=== PATIENT | male | born 1945 | race Caucasian/White ===

== ENCOUNTER 2016-09-15 13:00 | Outpatient (CLI) | payer OTHER ==
--- NOTE | 2016-09-16 09:15 | Mammography Report ---
DIGITAL BILATERAL MAMMOGRAM: 09/15/2016 CLINICAL HISTORY: A 70-year-old male who smokes occasionally marijuana and also takes steroids. Pat isamar has been feeling recently a right breast lump and tenderness. Patient has no family history of breast cancer. No past history of breast surgeries. COMPARISON: None. TECHNIQUE: Craniocaudad and oblique lateral views of each breast were obtained with Hologic Full Fie ld digital mammography. FINDINGS: Breasts are almost entirely composed of fat. Minimal glandular hyperplasia is noted in th e right subareolar region. This right is in the area or pit. This glandular hyperplasia in the male is typical for benign gynecomastia. No additional abnormalities are detected. Breasts otherwise ar e normal. No clusters of calcification are seen. No masses are noted. IMPRESSION: BENIGN RIGHT GYNECOMASTIA IS NOTED. BIRADS CATEGORY 2 - BENIGN FINDING. RECOMMENDATIONS: None. COMMENT: Dr. Hicks informed the patient of the benign findings. He told the patient that the sangita gn gynecomastia was most likely a response to either the marijuana or the steroids. STANDARD QUALIFYING STATEMENTS 1. This examination was reviewed with the aid of Computer-Aided Detection (CAD). 2. A negative or benign imaging report should not delay biopsy if clinically suspicious findings are present. Consider surgical consultation if warranted. More than 5% of cancers are not identified by i ing. 3. Dense breasts may obscure an underlying neoplasm. JOB #: [id number] EXT JOB #:
== END 2016-09-15 13:01 | disposition home or self-care (01) ==
LOC: DI 13:00
PROVIDERS: ATTEND Family Medicine
DX: N62 Hypertrophy of breast (principal)
CPT/HCPCS: 77066

== ENCOUNTER 2016-09-18 09:04 | Outpatient (CLI) | payer MEDICARE, OTHER ==
[2016-09-18 14:51] LABS: BASOPHILS # (AUTO) 0.1 10^3/uL (0.0-0.1); BASOPHILS % (AUTO) 0.9 %; EOSINOPHILS # (AUTO) 0.2 10^3/uL (0.0-0.7); EOSINOPHILS % (AUTO) 3.5 %; HCT - HEMATOCRIT 46.4 % (42.0-52.0); HGB - HEMOGLOBIN 15.2 g/dL (14.0-18.0); LYMPHOCYTES # (AUTO) 1.1 10^3/uL (1.5-3.5); LYMPHOCYTES % (AUTO) 17.5 %; MEAN CORPUSCULAR HEMOGLOBIN 31.8 pg (27.0-31.0); MEAN CORPUSCULAR HGB CONC 32.8 g/dL (32.0-36.0); MEAN CORPUSCULAR VOLUME 96.9 fL (80.0-94.0); MEAN PLATELET VOLUME 8.4 fL (7.4-11.4); MONOCYTES # (AUTO) 0.6 10^3/uL (0.0-1.0); MONOCYTES % (AUTO) 9.5 %; NEUTROPHILS # (AUTO) 4.3 10^3/uL (1.5-6.6); NEUTROPHILS % (AUTO) 68.6 %; RED BLOOD COUNT 4.79 10^6/uL (4.70-6.10); RED CELL DISTRIBUTION WIDTH 14.3 % (12.0-15.0); UNCORRECTED WHITE BLOOD COUNT 6.3 x10^3/uL; WHITE BLOOD COUNT 6.3 x10^3/uL (4.8-10.8)
[2016-09-18 15:12] LABS: ALBUMIN/GLOBULIN RATIO 1.3 (1.0-2.2); BILIRUBIN,TOTAL 1.4 mg/dL (0.2-1.0); BUN - BLOOD UREA NITROGEN 15 mg/dL (6-20); CALCIUM 9.5 mg/dL (8.5-10.3); CARBON DIOXIDE - CO2 26 mmol/L (21-32); CHLORIDE 101 mmol/L (101-111); CHOL/HDL RATIO 1.7 (<5.0); CHOLESTEROL 211 mg/dL; CREATININE 1.1 mg/dL (0.6-1.2); GFR - MDRD 66 (>89); GLUCOSE 127 mg/dL (70-100); HDL CHOLESTEROL 124 mg/dL; LDL/HDL RATIO 0.6 (<3.6); SODIUM 137 mmol/L (135-145); TOTAL PROTEIN 6.9 g/dL (6.7-8.2); TRIGLYCERIDES 58 mg/dL; VLDL CHOLESTEROL 12 mg/dL
[2016-09-18 15:24] LABS: FERRITIN 58.9 ng/mL (23.9-336.2)
[2016-09-18 15:37] LABS: THYROID STIMULATING HORMONE 1.92 uIU/mL (0.34-5.60)
[2016-09-21 10:28] LABS: HEMOGLOBIN A1C 0.54 g/dL
== END 2016-09-18 09:05 | disposition home or self-care (01) ==
LOC: LAB.WCP 09:04
PROVIDERS: ATTEND Physician Assistant Medical
DX: Z00.00 Encounter for general adult medical examination without abnormal findings (principal); D50.9 Iron deficiency anemia, unspecified; Z12.5 Encounter for screening for malignant neoplasm of prostate; E29.1 Testicular hypofunction; R73.9 Hyperglycemia, unspecified
CPT/HCPCS: 36415; 80053; 80061; 82728; 83036; 84403; 84443; 85025; G0103; 83690; 84153

== ENCOUNTER 2018-01-02 12:56 | Outpatient (CLI) | payer OTHER | END 2018-01-02 12:57 | disposition critical access hospital (66) | LOC: EMS 12:56 | PROVIDERS: ATTEND Surgery | DX: S89.92XA Unspecified injury of left lower leg, initial encounter (principal); W19.XXXA Unspecified fall, initial encounter | CPT/HCPCS: A0425; A0429 ==

== ENCOUNTER 2018-01-02 13:04 | Emergency (ER) | payer OTHER ==
[2018-01-02] MEDS ORDERED: oxyCODONE 5 MG TABLET PO STA ×2 (13:16→18:19)
--- NOTE | 2018-01-02 13:18 | ED Physician Documentation ---
PD HPI LOWER EXT INJURY - Stated complaint Stated Complaint: GLF - Chief complaint Chief Complaint: Ext Problem - History obtained from History obtained from: Patient, Family, EMS - History of Present Illness PD HPI LOW EXT INJURY LOCATION: Left, Knee Type of injury: Other (This is a 72-year-old gentleman who in 2002 or so had extensive surgeries on the left leg with what sounds like an external fixator for a tib-fib fracture and repair of his patella. Today he slipped and fell around 6 AM and thinks his knee bent too far and has moderate to severe left knee pain. No other injuries, no head injury.) Review of Systems Ten Systems: 10 systems reviewed and negative Constitutional: reports: Reviewed and negative Cardiac: reports: Reviewed and negative Respiratory: reports: Reviewed and negative Musculoskeletal: reports: Joint swelling Neurologic: denies: Headache, Head injury, LOC PD PAST MEDICAL HISTORY - Past Medical History Cardiovascular: None Respiratory: None Endocrine/Autoimmune: None GI: None : Other HEENT: None, Other Psych: None Musculoskeletal: Other Derm: None - Past Surgical History General: Cholecystectomy, Gastric surgery, Other Ortho: Other - Present Medications Home Medications: Ambulatory Orders Medication Instructions Recorded Confirmed Ascorbic Acid [Vitamin C] 1,000 mg PO DAILY 02/26/14 02/26/14 Calcium Carbonate/Vitamin D3 2 each PO BID 02/26/14 02/26/14 [Calcium + Vitamin D Tablet] Ferrous Sulfate [Iron Supplement] 325 mg PO DAILY 02/26/14 02/26/14 Glucosamine Sulfate Dipot Chlr 1,000 mg PO DAILY 02/26/14 02/26/14 [Glucosamine] Inulin [Fiber Choice] 1.5 gm PO DAILY 02/26/14 02/26/14 Mecobalamin [B-12] 1,000 mcg PO DAILY 02/26/14 02/26/14 RX: Magnesium 400 mg PO DAILY 02/26/14 02/26/14 RX: Multivitamin [Multivitamins] 1 ea PO DAILY 02/26/14 02/26/14 RX: Omeprazole 20 mg PO DAILY 02/26/14 02/26/14 RX: Larned's Wort 150 mg PO DAILY 02/26/14 02/26/14 RX: Testosterone Cypionate 100 mg IM ONCE 02/26/14 02/26/14 - Allergies Allergies/Adverse Reactions: Allergies Allergy/AdvReac Type Severity Reaction Status Date / Time No Known Drug Allergies Allergy Verified 01/02/18 13:13 - Family History Family history: reports: Non contributory PD ED PE NORMAL - Vitals Vital signs reviewed: Yes - General General: Alert and oriented X 3, No acute distress - HEENT HEENT: PERRL, EOMI - Neck Neck: Supple, no meningeal sign, No bony TTP - Cardiac Cardiac: RRR, No murmur - Respiratory Respiratory: No respiratory distress, Clear bilaterally - Abdomen Abdomen: Soft, Non tender - Derm Derm: Normal color, Warm and dry - Extremities Extremities: Other (There is a very large effusion of the left knee without focal tenderness but he is unable to range at all due to pain, the hip and lower leg are nontender. He has bounding pedal pulses.) - Neuro Neuro: Alert and oriented X 3, Normal speech - Psych Psych: Normal mood, Normal affect Results - Vitals Vitals: Vital Signs - 24 hr 01/02/18 01/02/18 01/02/18 13:07 15:23 18:19 Temperature 36.4 C L Heart Rate 65 64 63 Respiratory 16 15 15 Rate Blood Pressure 132/79 H 121/68 133/79 H O2 Saturation 98 98 98 Oxygen O2 Source Room air - Labs Labs: Laboratory Tests 01/02/18 01/02/18 14:35 14:35 WBC 15.3 H RBC 4.43 L Hgb 14.0 Hct 41.6 L MCV 93.7 MCH 31.6 H MCHC 33.7 RDW 13.7 Plt Count 271 MPV 7.5 Neut # (Auto) 13.1 H Lymph # (Auto) 1.1 L Ector # (Auto) 0.9 Eos # (Auto) 0.1 Baso # (Auto) 0.1 Absolute Nucleated RBC 0.00 Nucleated RBC % 0.0 Sodium 140 Potassium 4.5 Chloride 104 Carbon Dioxide 25 Anion Gap 11.0 BUN 13 Creatinine 1.0 Estimated GFR (MDRD) 73 L Glucose 105 H Calcium 9.1 Total Bilirubin 0.8 AST 28 ALT 24 Alkaline Phosphatase 62 Total Protein 6.8 Albumin 4.0 Globulin 2.8 Albumin/Globulin Ratio 1.4 Lipase 50 - Rads (name of study) L knee XR Radiology: EMP read contemporaneously (Comminuted distal femoral metaphyseal fracture with large butterfly fragments the medial aspect of the fracture plane and 2 cm of lateral displacement of the distal fracture fragment. Status post ORIF at the medial femoral condyle and tibia as well as old healed tibial and fibular fractures.) PD MEDICAL DECISION MAKING - ED course ED course: 72-year-old gentleman with extensive hardware in the left lower extremity presents after an isolated left lower extremity injury, x-ray shows comminuted and displaced angulated distal femur fracture. Case discussed by phone with Dr. Hill, the on-call orthopedic surgeon who recommended transfer to a tertiary facility for a staged repair. [facility] was called at 1:58 PM. We were notified by [facility] that he has Medicare primary and transfer does not need to go through them. We called [facility] but they were full. However they called us back and did accept the patient, I spoke with the orthopedist Dr. Lombardo who accepted him to his service and cobras were completed. Departure - Departure Disposition: 02 Transfer Acute Care Hosp Clinical Impression: Closed fracture of left distal femur Condition: Serious Discharge Date/Time: 01/02/18 18:35
--- NOTE | 2018-01-02 14:24 | XRAY Report ---
Reason: knee inj Procedure Date: 01/02/2018 Accession Number: [id number] / [id number] Procedure: XR - Knee 4 View LT CPT Code: FULL RESULT: EXAM: LEFT KNEE RADIOGRAPHY EXAM DATE: 01/02/2018 01:41 PM. CLINICAL HISTORY: Pain after knee injury. COMPARISON: Left knee 11/19/2011. TECHNIQUE: 4 views, 6 films. FINDINGS: Bones: There is diffuse osteopenia with prior screw fixation at the medial femoral condyle and lateral plate and screw fixation of the distal tibia. Intramedullary gala is also noted within the tibia with distal locking screws. There is a deformity of the distal tibia as well as the proximal fibula consistent with old fractures. However, there is a comminuted distal femoral metaphyseal fracture. There is 2 cm lateral displacement of the distal fracture fragment with a prominent butterfly fragment at the medial aspect of the fracture plane. Joints: Small knee effusion. Soft Tissues: Prominent soft tissue swelling. Heterotopic ossification adjacent to the medial femoral condyle. IMPRESSION: 1. Comminuted distal femoral metaphyseal fracture with large butterfly fragment at the medial aspect of the fracture plane and 2 cm lateral displacement of the distal fracture fragment. 2. Status post open reduction internal fixation at the medial femoral condyle as well as the tibia. 3. Old healed tibial and fibular fractures. RADIA
[2018-01-02 14:48] LABS: BASOPHILS # (AUTO) 0.1 10^3/uL (0.0-0.1); BASOPHILS % (AUTO) 0.4 %; EOSINOPHILS # (AUTO) 0.1 10^3/uL (0.0-0.7); EOSINOPHILS % (AUTO) 0.9 %; LYMPHOCYTES # (AUTO) 1.1 10^3/uL (1.5-3.5); LYMPHOCYTES % (AUTO) 7.3 %; MEAN CORPUSCULAR HEMOGLOBIN 31.6 pg (27.0-31.0); MEAN CORPUSCULAR HGB CONC 33.7 g/dL (32.0-36.0); MEAN CORPUSCULAR VOLUME 93.7 fL (80.0-94.0); MEAN PLATELET VOLUME 7.5 fL (7.4-11.4); MONOCYTES # (AUTO) 0.9 10^3/uL (0.0-1.0); MONOCYTES % (AUTO) 5.9 %; NEUTROPHILS # (AUTO) 13.1 10^3/uL (1.5-6.6); NEUTROPHILS % (AUTO) 85.5 %; PLT - PLATELET COUNT 271 10^3/uL (130-450); RED BLOOD COUNT 4.43 10^6/uL (4.70-6.10); RED CELL DISTRIBUTION WIDTH 13.7 % (12.0-15.0); WHITE BLOOD COUNT 15.3 x10^3/uL (4.8-10.8)
[2018-01-02 15:03] LABS: ALBUMIN/GLOBULIN RATIO 1.4 (1.0-2.2); BILIRUBIN,TOTAL 0.8 mg/dL (0.2-1.0); CALCIUM 9.1 mg/dL (8.5-10.3); TOTAL PROTEIN 6.8 g/dL (6.7-8.2)
[2018-01-02 18:19] VITALS: BP 133/79
== END 2018-01-02 18:35 | disposition short-term general hospital (02) ==
LOC: EDUNIT# → ED 13:04
DX: S72.492A Other fracture of lower end of left femur, initial encounter for closed fracture (principal); W01.0XXA Fall on same level from slipping, tripping and stumbling without subsequent striking against object, initial encounter; Y92.009 Unspecified place in unspecified non-institutional (private) residence as the place of occurrence of the external cause
CPT/HCPCS: 36415; 73564; 80053; 83690; 85025; 99284; 99285; A9270

== ENCOUNTER 2018-03-09 08:00 | Outpatient (CLI) | payer OTHER ==
[2018-03-09 19:09] LABS: BASOPHILS # (AUTO) 0.1 10^3/uL (0.0-0.1); EOSINOPHILS # (AUTO) 0.3 10^3/uL (0.0-0.7); EOSINOPHILS % (AUTO) 4.9 %; LYMPHOCYTES # (AUTO) 1.5 10^3/uL (1.5-3.5); LYMPHOCYTES % (AUTO) 23.6 %; MEAN CORPUSCULAR HEMOGLOBIN 31.1 pg (27.0-31.0); MEAN CORPUSCULAR HGB CONC 32.6 g/dL (32.0-36.0); MEAN CORPUSCULAR VOLUME 95.3 fL (80.0-94.0); MEAN PLATELET VOLUME 8.2 fL (7.4-11.4); MONOCYTES # (AUTO) 0.5 10^3/uL (0.0-1.0); MONOCYTES % (AUTO) 7.9 %; NEUTROPHILS # (AUTO) 3.9 10^3/uL (1.5-6.6); NEUTROPHILS % (AUTO) 62.6 %; PLT - PLATELET COUNT 340 10^3/uL (130-450); RED BLOOD COUNT 4.83 10^6/uL (4.70-6.10); RED CELL DISTRIBUTION WIDTH 14.2 % (12.0-15.0); WHITE BLOOD COUNT 6.2 x10^3/uL (4.8-10.8)
[2018-03-09 19:20] LABS: ALBUMIN 4.1 g/dL (3.2-5.5); ALBUMIN/GLOBULIN RATIO 1.5 (1.0-2.2); BILIRUBIN,TOTAL 0.3 mg/dL (0.2-1.0); CALCIUM 9.4 mg/dL (8.5-10.3); CREATININE 0.9 mg/dL (0.6-1.2); TOTAL PROTEIN 6.9 g/dL (6.7-8.2)
== END 2018-03-09 23:59 | disposition home or self-care (01) ==
LOC: LAB.WCP 08:00
PROVIDERS: ATTEND Physician Assistant Medical
DX: R73.9 Hyperglycemia, unspecified (principal); D50.9 Iron deficiency anemia, unspecified; E29.1 Testicular hypofunction
CPT/HCPCS: 36415; 80053; 81599; 82728; 84270; 84402; 84403; 85025

== ENCOUNTER 2018-11-24 12:07 | Outpatient (CLI) | payer OTHER | END 2018-11-24 12:08 | disposition home or self-care (01) | LOC: DI 12:07 | PROVIDERS: ATTEND Orthopaedic Surgery Adult Reconstructive Orthopaedic Surgery | DX: Z53.9 Procedure and treatment not carried out, unspecified reason (principal) ==

== ENCOUNTER 2018-12-30 08:00 | Outpatient (CLI) | payer OTHER ==
[2018-12-30 20:32] LABS: ALBUMIN 4.3 g/dL (3.2-5.5); ALBUMIN/GLOBULIN RATIO 1.4 (1.0-2.2); BILIRUBIN,TOTAL 0.8 mg/dL (0.2-1.0); CALCIUM 9.4 mg/dL (8.5-10.3); TOTAL PROTEIN 7.3 g/dL (6.7-8.2)
== END 2018-12-30 08:01 | disposition home or self-care (01) ==
LOC: LAB.WCP 08:00
PROVIDERS: ATTEND Family Medicine
DX: I10 Essential (primary) hypertension (principal); R73.9 Hyperglycemia, unspecified
CPT/HCPCS: 36415; 80053; 84443

== ENCOUNTER 2019-08-17 09:30 | Outpatient (CLI) | payer OTHER ==
[2019-08-17 11:48] LABS: BASOPHILS # (AUTO) 0.1 10^3/uL (0.0-0.1); BASOPHILS % (AUTO) 1.1 %; EOSINOPHILS # (AUTO) 0.3 10^3/uL (0.0-0.7); EOSINOPHILS % (AUTO) 5.2 %; HGB - HEMOGLOBIN 14.7 g/dL (14.0-18.0); LYMPHOCYTES # (AUTO) 1.2 10^3/uL (1.5-3.5); LYMPHOCYTES % (AUTO) 18.7 %; MEAN CORPUSCULAR HEMOGLOBIN 28.3 pg (27.0-31.0); MEAN CORPUSCULAR VOLUME 88.3 fL (80.0-94.0); MEAN PLATELET VOLUME 9.7 fL (7.4-11.4); MONOCYTES # (AUTO) 0.5 10^3/uL (0.0-1.0); MONOCYTES % (AUTO) 8.3 %; NEUTROPHILS # (AUTO) 4.2 10^3/uL (1.5-6.6); NEUTROPHILS % (AUTO) 66.5 %; PLT - PLATELET COUNT 286 10^3/uL (130-450); RED CELL DISTRIBUTION WIDTH 18.8 % (12.0-15.0); WHITE BLOOD COUNT 6.3 x10^3/uL (4.8-10.8)
[2019-08-17 11:54] LABS: HB2 TOTAL 15.6 g/dL; HEMOGLOBIN A1C 0.59 g/dL; HEMOGLOBIN A1C % 5.6 % (4.6-6.2)
[2019-08-17 12:20] LABS: % IRON SATURATION 31 % (20-50); BUN - BLOOD UREA NITROGEN 12 mg/dL (6-20); CALCIUM 9.2 mg/dL (8.5-10.3); CARBON DIOXIDE - CO2 27 mmol/L (21-32); CHLORIDE 104 mmol/L (101-111); CHOL/HDL RATIO 2.3 (<5.0); CHOLESTEROL 201 mg/dL; CREATININE 1.1 mg/dL (0.6-1.2); GLUCOSE 123 mg/dL (70-100); HDL CHOLESTEROL 89 mg/dL; IRON 114 ug/dL (45-182); LDL CHOLESTEROL,CALCULATED 96 mg/dL; LDL/HDL RATIO 1.1 (<3.6); SODIUM 137 mmol/L (135-145); TOTAL IRON BINDING CAPACITY 367 ug/dL (250-450); TRANSFERRIN 262 mg/dL (180-329); VLDL CHOLESTEROL 16 mg/dL
== END 2019-08-17 23:59 | disposition home or self-care (01) ==
LOC: LAB.WCP 09:30
PROVIDERS: ATTEND Physician Assistant Medical
DX: R73.9 Hyperglycemia, unspecified (principal); D50.9 Iron deficiency anemia, unspecified; Z12.5 Encounter for screening for malignant neoplasm of prostate
CPT/HCPCS: 36415; 80048; 80061; 82728; 83036; 83540; 83721; 84153; 84466; 85025

== ENCOUNTER 2020-02-20 09:30 | Outpatient (CLI) | payer OTHER ==
[2020-02-20 13:44] LABS: ALBUMIN 4.3 g/dL (3.2-5.5); ALBUMIN/GLOBULIN RATIO 1.5 (1.0-2.2); BILIRUBIN,TOTAL 1.2 mg/dL (0.2-1.0); CALCIUM 10.1 mg/dL (8.5-10.3); CREATININE 1.1 mg/dL (0.6-1.2); TOTAL PROTEIN 7.2 g/dL (6.7-8.2)
[2020-02-20 14:56] LABS: HEMOGLOBIN A1c% 5.4 % (4.27-6.07)
== END 2020-02-20 23:59 | disposition home or self-care (01) ==
LOC: LAB.WCP 09:30
PROVIDERS: ATTEND Physician Assistant Medical
DX: R73.9 Hyperglycemia, unspecified (principal); E29.1 Testicular hypofunction
CPT/HCPCS: 36415; 80053; 81599; 83036; 84402; 84403

== ENCOUNTER 2020-08-26 08:00 | Outpatient (CLI) | payer OTHER ==
[2020-08-26 13:23] LABS: BASOPHILS # (AUTO) 0.1 10^3/uL (0.0-0.1); BASOPHILS % (AUTO) 1.1 %; EOSINOPHILS # (AUTO) 0.5 10^3/uL (0.0-0.7); EOSINOPHILS % (AUTO) 7.7 %; HCT - HEMATOCRIT 48.4 % (42.0-52.0); HGB - HEMOGLOBIN 15.3 g/dL (14.0-18.0); LYMPHOCYTES # (AUTO) 1.4 10^3/uL (1.5-3.5); LYMPHOCYTES % (AUTO) 20.3 %; MEAN CORPUSCULAR HEMOGLOBIN 30.5 pg (27.0-31.0); MEAN CORPUSCULAR HGB CONC 31.6 g/dL (32.0-36.0); MEAN CORPUSCULAR VOLUME 96.6 fL (80.0-94.0); MEAN PLATELET VOLUME 9.8 fL (7.4-11.4); MONOCYTES # (AUTO) 0.5 10^3/uL (0.0-1.0); MONOCYTES % (AUTO) 7.2 %; NEUTROPHILS # (AUTO) 4.2 10^3/uL (1.5-6.6); NEUTROPHILS % (AUTO) 63.4 %; PLT - PLATELET COUNT 307 10^3/uL (130-450); RED BLOOD COUNT 5.01 10^6/uL (4.70-6.10); RED CELL DISTRIBUTION WIDTH 13.7 % (12.0-15.0); WHITE BLOOD COUNT 6.7 x10^3/uL (4.8-10.8)
[2020-08-26 13:43] LABS: CALCIUM 9.5 mg/dL (8.5-10.3)
[2020-08-26 13:59] LABS: FERRITIN 46.6 ng/mL (23.9-336.2)
== END 2020-08-26 23:59 ==
LOC: LAB.WCP 08:00
PROVIDERS: ATTEND Physician Assistant Medical
DX: R73.9 Hyperglycemia, unspecified (principal); D50.9 Iron deficiency anemia, unspecified; E29.1 Testicular hypofunction
CPT/HCPCS: 36415; 80048; 81599; 82607; 82728; 84402; 84403; 85025

== ENCOUNTER 2020-09-24 11:07 | Outpatient (CLI) | payer OTHER ==
--- NOTE | 2020-09-25 07:53 | Ultrasound Report ---
LIMITED ULTRASOUND OF RIGHT BREAST AND AXILLA: 09/24/2020 CLINICAL: Palpable right breast lump. Comparison is made to exams dated: 09/24/2020 mammogram and 09/15/2016 mammogram - [facility]. Color flow ultrasound of the right breast retroareolar and axilla regions was performed. Gurrola scale images of the real-time examination were reviewed. There is a 3.4 cm x 1.8 cm x 3 cm irregular mass in the right breast central to the nipple in the ret roareolar region. This irregular mass is hypoechoic. This correlates as palpated, with mammography findings, area of clinical concern, and the previous biopsy proven malignancy. Color flow imaging de monstrates that there is vascularity present. No significant abnormalities were seen sonographically in the right axilla. IMPRESSION: KNOWN BIOPSY PROVEN MALIGNANCY The 3.4 cm x 1.8 cm x 3 cm irregular mass in the right breast is consistent with the known biopsy pro samantha malignancy. Recommend surgical and oncologic consultation. Findings and recommendations were conveyed to the patient during today's evaluation. This exam was interpreted at Station ID: [id number]. Electronically Signed By: Sunday Montenegro M.D. aty/:09/24/2020 12:50:32 Ultrasound BI-RADS: 6 Known biopsy proven malignancy BI-RADS CATEGORY: (6) - 6 Unspecified - other recall n/a LATERALITY: (B)
--- NOTE | 2020-09-25 07:53 | Mammography Report ---
MALE BILATERAL DIGITAL DIAGNOSTIC MAMMOGRAM 3D/2D: 09/24/2020 CLINICAL: Palpable right breast lump. Comparison is made to exam dated: 09/15/2016 mammogram - [facility]. There is minimal gynecomastia in the left breast. There is a 2.7 cm x 1.9 cm x 3.2 cm irregular high density mass with a spiculated margin in the right breast central to the nipple in the retroareolar region. This correlates as palpated and with the r eported punch biopsy. No other significant masses, calcifications, or other findings are seen in either breast. IMPRESSION: INCOMPLETE: NEEDS ADDITIONAL IMAGING EVALUATION The 2.7 cm x 1.9 cm x 3.2 cm irregular high density mass in the right breast is consistent with the k nown biopsy proven carcinoma; however, further imaging is required with ultrasound which is scheduled to immediately follow this exam. This exam was interpreted at Station ID: [id number]. NOTE: For mammograms, a report in lay terms will be sent to the patient. Approximately 15% of breast malignancies will not be visualized mammographically. In the management of a palpable breast mass, a negative mammogram must not discourage biopsy of a clinically suspicious lesion. Electronically Signed By: Sunday Montenegro M.D. aty/:09/24/2020 12:47:26 ACR BI-RADS Category 0: Incomplete 3340F PARENCHYMAL PATTERN: (F) - The breast(s) demonstrate(s) diffuse fatty replacement. BI-RADS CATEGORY: (0) - 0 Ultrasound [id number] Immediate follow-up LATERALITY: (R)
== END 2020-09-24 11:08 | disposition home or self-care (01) ==
LOC: DI 11:07
PROVIDERS: ATTEND Physician Assistant Medical
DX: C50.021 Malignant neoplasm of nipple and areola, right male breast (principal); Z17.0 Estrogen receptor positive status [ER+]

== ENCOUNTER 2020-10-28 07:42 | Day surgery (SDC) | payer OTHER ==
[2020-10-28] MEDS ORDERED: LACTATED RINGERS 1,000 ML IV ONE ×2 (07:52→12:33)
[2020-10-28] MEDS ORDERED: CEFAZOLIN SODIUM IN 0.9 % NACL 2 GM/100 ML BAG IV ONE (08:22)
--- NOTE | 2020-10-28 08:38 | ANESTHESIA ---
Pre-Anesthesia VS, & Labs - Diagnosis right breast cancer - Procedure right mastectomy and sn biopsy Vital Signs: Temp Pulse Resp BP Pulse Ox 36 C L 52 L 12 181/76 H 98 10/28/20 08:00 10/28/20 08:00 10/28/20 08:00 10/28/20 08:00 10/28/20 08:00 Height: 6 ft Weight (kg): 91.9 kg Body Mass Index: 27.4 BMI Classification: Overweight - NPO >8 hours Home Medications and Allergies Home Medications: Ambulatory Orders Aspirin EC [Ecotrin] 81 mg PO DAILY 10/23/20 [place]-3/Dha/Epa/Fish Oil [Fish Oil 1,000 mg Softgel] 1 each PO DAILY 10/23/20 Ascorbic Acid [Vitamin C] 1,000 mg PO DAILY 02/26/14 Calcium Carbonate/Vitamin D3 [Calcium + Vitamin D Tablet] 2 each PO BID 02/26/14 Ferrous Sulfate [Iron Supplement] 325 mg PO DAILY 02/26/14 Magnesium 400 mg PO DAILY 02/26/14 Mecobalamin [B-12] 1,000 mcg PO DAILY 02/26/14 Multivitamin [Multivitamins] 1 ea PO DAILY 02/26/14 Omeprazole 20 mg PO DAILY 02/26/14 Testosterone Cypionate 100 mg IM ONCE 02/26/14 Tamsulosin [Flomax] 1 cap PO DAILY 10/15/20 Aspirin EC [Ecotrin] 81 mg PO DAILY 10/23/20 [place]-3/Dha/Epa/Fish Oil [Fish Oil 1,000 mg Softgel] 1 each PO DAILY 10/23/20 Allergies/Adverse Reactions: Allergies Allergy/AdvReac Type Severity Reaction Status Date / Time No Known Drug Allergies Allergy Verified 01/02/18 13:13 Anes History & Medical History - Anesthetic History Anesthesia Complications: reports: No previous complications - Medical History Cardiovascular: reports: High cholesterol Pulmonary: reports: None Gastrointestinal: reports: None Urinary: reports: Benign prostate hypertrophy Musculoskeletal: reports: None Endocrine/Autoimmune: reports: None Skin: reports: None Smoking Status: Former smoker History of Cancer?: Yes - Surgical History General: reports: Cholecystectomy, Gastric surgery, Other Eyes Ears Nose Throat (EENT): reports: Tonsil/Adenoidectomy, Other Orthopedic: reports: Knee replacement, Other Exam General: Alert Dental: WNL Mouth Opening: Greater than 4 Fingerbreadths Mallampati classification: III Thyromental Distance: greater than 6 cm Respiratory: Lungs clear Cardiovascular: Regular rate Plan Anesthesia Type: General Consent for Procedure(s) Verified and Reviewed: Yes Code Status: Attempt Resuscitation ASA classification: 3-Severe systemic disease Is this case an emergency?: No
[2020-10-28] MEDS ORDERED: fentaNYL 100 MCG/2 ML VIAL IVP PRN (08:46)
[2020-10-28] MEDS ORDERED: ATROPINE ABBOJECT 1 MG/10 ML SYRINGE IVP PRN (08:46)
[2020-10-28] MEDS ORDERED: ePHEDrine 50 MG/ML VIAL IVP PRN (08:46)
[2020-10-28] MEDS ORDERED: HYDROmorphone 0.5 MG/0.5 ML SYRINGE IVP PRN (08:46)
[2020-10-28] MEDS ORDERED: MORPHINE 2 MG/ML CARPUJECT IVP PRN (08:46)
[2020-10-28] MEDS ORDERED: ONDANSETRON 4 MG/2 ML VIAL IVP PRN ×2 (08:46→12:12)
[2020-10-28] MEDS ORDERED: METOCLOPRAMIDE 10 MG/2 ML VIAL IVP PRN (08:46)
[2020-10-28] MEDS ORDERED: NALOXONE 0.4 MG/ML VIAL IVP PRN (08:46)
[2020-10-28] MEDS ORDERED: LACTATED RINGERS 1,000 ML IV SCH (09:00)
[2020-10-28] MEDS ORDERED: BUPIVACAINE 0.5% PF 10 ML VIAL ONE (09:28)
[2020-10-28] MEDS ORDERED: LIDOCAINE 2%-EPI 1:100000 20 ML MDV ONE (09:28)
[2020-10-28] MEDS ORDERED: PROPOFOL 200 MG/20 ML VIAL IVP ONE ×2 (09:33→10:46)
[2020-10-28] MEDS ORDERED: LIDOCAINE-MPF 2% 5 ML VIAL ONE (09:33)
[2020-10-28] MEDS ORDERED: MIDAZOLAM 2 MG/2 ML VIAL ONE (09:33)
[2020-10-28] MEDS ORDERED: ONDANSETRON 4 MG/2 ML VIAL ONE (10:53)
[2020-10-28] MEDS ORDERED: DEXAMETHASONE 4 MG/ML VIAL ONE (10:53)
[2020-10-28] MEDS ORDERED: GLYCOPYRROLATE 1 MG/5 ML VIAL ONE (11:02)
[2020-10-28] MEDS ORDERED: LIDOCAINE 2%-EPI 1:100000 20 ML MDV SUBQ ONE (11:11)
[2020-10-28] MEDS ORDERED: BUPIVACAINE 0.5% PF 10 ML VIAL SUBQ ONE (11:11)
--- NOTE | 2020-10-28 12:08 | OPERATIVE REPORT ---
Operative Report - General Procedure Date: 10/28/20 Planned Procedure: Right mastectomy and sentinel node dissection Pre-Op Diagnosis: Right breast cancer Procedure Performed: Right mastectomy and sentinel node dissection Post Op Diagnosis: Right breast cancer - Procedure Note Primary Surgeon: Sara Anesthesia Provider: WALI Christian Anesthesia Technique: General LMA, Local Pathology: 1. Beaumont node number 1 2. Bea[place]ont node number 2 3. Right breast marked for orientation IV Fluids (mL): 600 Estimated Blood Loss (mL): 25 Drain/Tube Type: Howard drain (19 F in the inframammary pocket) Findings: 2 sentinel nodes - both grossly normal in appearance No Neoprobe uptake at the site of the skin marker on the inferior chest. Likely just a drop of spilled isotope washed away during prep Complications: None apparent - Other Other Information/Narrative: After obtaining informed consent, the patient was brought to the operating room and placed in the supine position on the operating table. Following successful induction of general endotracheal anesthesia, appropriate padding of all bony prominences, and placement of appropriate monitors, the right breast was prepped and draped in the standard surgical fashion. A timeout was held per scope protocol. All elements of the surgical safety checklist were followed before, during, and after the procedure. We began the procedure with a sentinel node dissection. The site of the brightest node had been marked in radiology with 2 skin marker axis. The neoprobe was used to identify the site of greatest uptake at level 2 in the patient's axilla. An incision was created over this area of uptake and carried through the skin and subcutaneous tissue to enter the axillary node packet. The first sentinel node was identified. It was noted to be slightly enlarged but otherwise grossly normal in appearance. It was carefully dissected free from surrounding stop structures sharply, all lymphatics and vasculature were addressed with clips prior to division. The node was liberated into the field. 10-second counts are recorded. Survey of the axilla revealed a second target immediately posterior to the first. This node was quite small and normal in appearance. It was carefully dissected free from surrounding stop structures sharply, all lymphatics and vasculature were addressed with clips prior to division. The node was liberated into the field. 10-second counts are recorded. Background in the axilla was checked and found to be 4-8. Background in the room was 0. We turned our attention to the right breast and began the procedure by infiltrating half percent Marcaine plain throughout the subcutaneous tissue of the breast and beneath the pectoralis major and minor muscles As well as portions of the serratus anterior. This was to done to provide a field block.An incision was fashioned elliptically. This incision was then completed with a 10 blade scalpel. It was carried through the skin and subcutaneous tissue. Traction and countertraction were then used to divide the underlying breast tissue from the overlying dermis from the level of the incision to the clavicle superiorly medially to the sternum inferiorly to the inframammary fold and lateral to the posterior axillary line. Once a circumferential dissection had been obtained, the breast was removed in a medial to lateral fashion. All perforators were addressed with sutures or with cautery prior to division. The breast was then marked with a short stitch superior and a long stitch lateral. The wound was irrigated with warm water and aspirated free of all fluid and particulate matter. It was checked once again for hemostasis and touched up in just a couple of places with cautery. A 17 Citizen [place] Howard drain was placed in the inframammary pocket and brought out inferior medially. It was sewn into place. The skin edges were then closed in an interrupted fashion with Vicryl suture and the Endo Close device was used to approximate the skin.
[2020-10-28] MEDS ORDERED: IBUPROFEN 600 MG TABLET PO PRN (12:12)
[2020-10-28] MEDS ORDERED: oxyCODONE 5 MG TABLET PO PRN (12:12)
[2020-10-28] MEDS ORDERED: ACETAMINOPHEN 325 MG TABLET PO PRN (12:12)
--- NOTE | 2020-10-28 12:26 | Nuclear Medicine Report ---
PROCEDURE: Lymph Node Scintigraphy INDICATIONS: RIGHT BREAST CANCER RADIOPHARMACEUTICAL: 0.5-1.0 mCi Millipore filtered Tc-99m sulfur colloid. TECHNIQUE: The area around the nipple was prepped and draped in a sterile fashion. Tc-99m sulfur colloid was in jected intra-dermally in the outer edge of the areola in the right breast. Images were obtained subs equently. A body contour outline was obtained. FINDINGS: There is lymph node(s) in the ipsilateral axilla, which is marked on the skin and the images for refe rring physician. IMPRESSION: A sentinel lymph node is identified in the right axilla. Reviewed by: Jose Luis Zee MD on 10/28/2020 12:25 PM PDT Approved by: Jose Luis Zee MD on 10/28/2020 12:25 PM PDT Station ID: [id number]
[2020-10-28] MEDS ORDERED: oxyCODONE 5 MG TABLET ONE (13:08)
[2020-10-28 14:24] VITALS: BP 133/66
--- NOTE | 2020-10-28 16:38 | ANESTHESIA POST OP EVALUATION ---
Anesthesia Post Eval - Post Anesthesia Eval Vitals: Last Vital Signs Temp 36.6 C 10/28/20 13:06 Pulse 74 10/28/20 13:15 Resp 15 10/28/20 13:15 BP 133/66 H 10/28/20 13:15 Pulse Ox 100 10/28/20 13:15 CV Function Including HR & BP: Stable Pain Control: Satisfactory Nausea & Vomiting: Negative Mental Status: Baseline Respiratory Status: Airway Patent Hydration Status: Satisfactory Anesthesia Complications: None
== END 2020-10-28 07:43 | disposition home or self-care (01) ==
LOC: DI 07:42
PROVIDERS: ATTEND Surgery
PROC: 07B50ZX Excision of Right Axillary Lymphatic, Open Approach, Diagnostic (ICD-10-PCS; 2020-10-28)
PROC: 0HBT0ZZ Excision of Right Breast, Open Approach (ICD-10-PCS; principal; 2020-10-28 10:00)
DX: C50.921 Malignant neoplasm of unspecified site of right male breast (principal); Z17.0 Estrogen receptor positive status [ER+]; Z87.891 Personal history of nicotine dependence
CPT/HCPCS: 78195

== ENCOUNTER 2021-01-01 08:42 | Outpatient (CLI) | payer OTHER ==
--- NOTE | 2021-01-02 10:43 | Nuclear Medicine Report ---
PROCEDURE: Bone Whole Body INDICATIONS: BREAST CA RADIOPHARMACEUTICAL: 26.7 mCi Tc-99m MDP IV. TECHNIQUE: Delayed whole-body scintigrams were obtained approximately 3-4 hours after intravenous injection of r adiotracer. Anterior and posterior views were acquired from vertex to feet. Additional left and rig ht oblique views of the skull and cervical spine were obtained. COMPARISON: None available. FINDINGS: There is increased uptake in paranasal area, most likely related to paranasal sinus diseas e. Increased uptake in maxilla and mandible with distribution suggesting dental disease. There is abn ormal uptake in the left femur and left knee, correlating with old traumatic injury and postsurgical change. No lesions are identified in skull, sternum, scapulae, ribs, bony pelvis, and other long bone s. Degenerative joint disease/arthritic changes are noted in shoulders bilaterally, wrists bilaterall y, right knee, and left ankle. IMPRESSION: 1. No definitive scintigraphic findings to suggest osseous metastasis. 2. Abnormal appearance of the left femur and knee consistent with posttraumatic and postsurgical lilly ges. Recommend clinical correlation and radiographic correlation if indicated. 3. Degenerative/arthritic changes as noted. Reviewed by: Jose Luis Zee MD on 01/02/2021 10:42 AM PDT Approved by: Jose Luis Zee MD on 01/02/2021 10:42 AM PDT Station ID: [id number]
== END 2021-01-01 08:43 | disposition home or self-care (01) ==
LOC: DI 08:42
PROVIDERS: ATTEND Internal Medicine Hematology & Oncology
DX: C50.929 Malignant neoplasm of unspecified site of unspecified male breast (principal); M19.012 Primary osteoarthritis, left shoulder; M19.011 Primary osteoarthritis, right shoulder; M19.032 Primary osteoarthritis, left wrist; M19.031 Primary osteoarthritis, right wrist; M17.11 Unilateral primary osteoarthritis, right knee; M19.072 Primary osteoarthritis, left ankle and foot
CPT/HCPCS: 78306

== ENCOUNTER 2021-02-18 08:00 | Outpatient (CLI) | payer OTHER ==
[2021-02-18 15:23] LABS: ALBUMIN 3.9 g/dL (3.2-5.5); ALBUMIN/GLOBULIN RATIO 1.3 (1.0-2.2); ALKALINE PHOSPHATASE 49 IU/L (42-121); ALT ALANINE AMINOTRANSFERASE 25 IU/L (10-60); AST ASPARTATE AMINOTRANSFERASE 27 IU/L (10-42); BILIRUBIN,TOTAL 0.8 mg/dL (0.2-1.0); BUN - BLOOD UREA NITROGEN 14 mg/dL (6-20); CALCIUM 9.4 mg/dL (8.5-10.3); CARBON DIOXIDE - CO2 29 mmol/L (21-32); CHLORIDE 102 mmol/L (101-111); CHOL/HDL RATIO 2.7 (<5.0); CHOLESTEROL 210 mg/dL; GFR - MDRD 72 (>89); GLUCOSE 107 mg/dL (70-100); HDL CHOLESTEROL 78 mg/dL; LDL CHOLESTEROL,CALCULATED 114 mg/dL; LDL/HDL RATIO 1.5 (<3.6); POTASSIUM 4.3 mmol/L (3.5-5.0); SODIUM 140 mmol/L (135-145); TOTAL PROTEIN 6.9 g/dL (6.7-8.2); TRIGLYCERIDES 89 mg/dL; VLDL CHOLESTEROL 18 mg/dL
[2021-02-18 15:28] LABS: THYROID STIMULATING HORMONE 1.74 uIU/mL (0.34-5.60)
== END 2021-02-18 23:59 | disposition home or self-care (01) ==
LOC: LAB.WCP 08:00
PROVIDERS: ATTEND Physician Assistant Medical
DX: Z00.00 Encounter for general adult medical examination without abnormal findings (principal); R73.9 Hyperglycemia, unspecified; N52.9 Male erectile dysfunction, unspecified
CPT/HCPCS: 36415; 80053; 80061; 83721; 84403; 84443

== ENCOUNTER 2021-02-18 09:01 | Outpatient (CLI) | payer OTHER ==
[2021-02-18] MEDS ORDERED: IOPAMIDOL-300 100 ML VIAL ONE (09:19)
[2021-02-18] MEDS ORDERED: IOPAMIDOL-300 50 ML VIAL ONE (09:19)
[2021-02-18 09:32] LABS: HCT - HEMATOCRIT 46.5 % (42.0-52.0); HGB - HEMOGLOBIN 14.9 g/dL (14.0-18.0); MEAN CORPUSCULAR HEMOGLOBIN 30.3 pg (27.0-31.0); MEAN CORPUSCULAR VOLUME 94.7 fL (80.0-94.0); MEAN PLATELET VOLUME 8.9 fL (7.4-11.4); NEUTROPHILS # (AUTO) 4.9 10^3/uL (1.5-6.6); NEUTROPHILS % (AUTO) 68.3 %; RED BLOOD COUNT 4.91 10^6/uL (4.70-6.10); RED CELL DISTRIBUTION WIDTH 14.3 % (12.0-15.0); WHITE BLOOD COUNT 7.1 x10^3/uL (4.8-10.8)
[2021-02-18 09:50] LABS: ALBUMIN 3.8 g/dL (3.2-5.5); ALBUMIN/GLOBULIN RATIO 1.4 (1.0-2.2); BILIRUBIN,TOTAL 0.7 mg/dL (0.2-1.0); CALCIUM 9.4 mg/dL (8.5-10.3); CREATININE 1.1 mg/dL (0.6-1.2); POTASSIUM 4.1 mmol/L (3.5-5.0); TOTAL PROTEIN 6.6 g/dL (6.7-8.2)
[2021-02-18] MEDS ORDERED: IOPAMIDOL-300 50 ML VIAL PO ONE (11:16)
[2021-02-18] MEDS ORDERED: IOPAMIDOL-300 100 ML VIAL IVP ONE (11:16)
--- NOTE | 2021-02-18 12:31 | CT Report ---
PROCEDURE: CHEST W INDICATIONS: BREAST CA CONTRAST: IV CONTRAST: Isovue 300 ml: 100 PO CONTRAST: Isovue 300 ml50 TECHNIQUE: After the administration of intravenous contrast, 1 mm axial images were acquired from the pulmonary apices through the posterior costophrenic angles. Axial 5 mm soft tissue kernel reconstructions were performed as well as 8 mm axial MIP and coronal and sagittal 5 mm reformations. For radiation dose reduction, the following was used: automated exposure control, adjustment of mA and/or kV according to patient size. COMPARISON: Same day CT abdomen and pelvis. FINDINGS: Image quality: Excellent. Lungs and pleura: No acute air space opacities. Left lower lobe pulmonary nodule measuring 0.5 cm, ( 3/201). Left chest diaphragmatic pulmonary nodule measuring mean diameter 1 cm, (3/230). This has a f lattened appearance on the coronal images. No pleural effusions or pneumothorax. Central and periphe ral airways are patent and normal in caliber. Mediastinum: Heart size is normal. Three-vessel coronary artery calcifications. No pericardial effu debra. No mediastinal or hilar adenopathy by size criteria. Thoracic aorta and central pulmonary art eries are normal in size. Esophagus is normal in caliber. No hiatal hernia. Bones and chest wall: Right breast and axillary clips. Suspected bone island at T1, (6/40). No aggre ssive appearing lesion. No vertebral body compression fractures. No axillary or supraclavicular nicolás opathy by size criteria. The thyroid is normal in size and there are no incidental findings. Abdomen: Please see separate dictated same day CT abdomen and pelvis. IMPRESSION: 1. Left diaphragm pulmonary nodule measuring 1 cm mean diameter. Left lower lobe pulmonary nodule jennifer suring 0.5 cm. These nodules are indeterminate in the setting of breast cancer. If more remote CT imaging including the lung bases can be identified this would be helpful for compar corky. Recommend further evaluated with PET/CT and short-term follow-up CT chest. 2. Suspect small bone island at T1. 3. Coronary artery calcifications. Reviewed by: Dmitriy Kaplan MD on 02/18/2021 12:30 PM PST Approved by: Dmitriy Kaplan MD on 02/18/2021 12:30 PM PST Station ID: [id number]
--- NOTE | 2021-02-18 12:56 | CT Report ---
PROCEDURE: Abdomen/Pelvis W INDICATIONS: BREAST CA CONTRAST: IV CONTRAST: Isovue 300 ml: 100 PO CONTRAST: Isovue 300 ml50 TECHNIQUE: After the administration of oral and intravenous contrast, 5 mm thick sections acquired from the diap hragms to the symphysis. 5 mm thick coronal and sagittal reformats were acquired. For radiation dos e reduction, the following was used: automated exposure control, adjustment of mA and/or kV accordin g to patient size. COMPARISON: Same day CT chest. Medicine bone scan 01/01/2021. FINDINGS: Image quality: Excellent. ABDOMEN: Lung bases: Please see separate dictated CT chest. Left lung base pulmonary nodules. Solid organs: No focal liver lesion is identified. Gallbladder is absent. Suspected pneumobilia in th e left lobe of the liver. The left lobe intrahepatic ducts are mildly dilated. The CBD measures 0.8 c m and is at the upper limits of normal in this post cholecystectomy patient. Pancreas enhances jonathan lly. No splenomegaly. No adrenal nodules. Kidneys demonstrate normal size and enhancement, without h ydronephrosis. Simple right renal cysts. A few cortical hypodensities on the left which are too small to further characterize. Peritoneum and bowel: [place]-en-Y gastric bypass. Tiny hiatal hernia. The excluded stomach is flui d-filled with mural enhancement and wall thickening, (08/17). The duodenum is not distended. No small bowel obstruction. A few colonic diverticuli. The appendix is not distended. Nodes and vessels: No retroperitoneal or mesenteric adenopathy by size criteria. Aorta and inferior vena cava are normal in size. Circumferential calcified atherosclerotic plaque. Miscellaneous: Ventral abdominal wall mesh. PELVIS: Genitourinary: Bladder wall thickness is normal. Miscellaneous: No inguinal hernias or adenopathy. Bones: No suspicious bony lesions. Pubic symphysis fixation hardware. Right transsacral screw. Small Schmorl's nodes. No vertebral body compression fractures. IMPRESSION: 1. No metastatic disease is identified in the abdomen or pelvis. No adenopathy. 2. Post gastric bypass. The excluded stomach demonstrates wall thickening and mural enhancement. This suggests gastritis. 3. Suspected pneumobilia in the left lobe of liver. Please see separately dictated CT chest. Results were communicated to Dr. Lizett Powers at 02/18/2021 12:45 PM PST. Reviewed by: Dmitriy Kaplan MD on 02/18/2021 12:55 PM PST Approved by: Dmitriy Kaplan MD on 02/18/2021 12:55 PM PST Station ID: [id number]
== END 2021-02-18 09:02 | disposition home or self-care (01) ==
LOC: LAB 09:01 → DI 09:02
PROVIDERS: ATTEND Internal Medicine Hematology & Oncology
DX: C50.929 Malignant neoplasm of unspecified site of unspecified male breast (principal); R91.8 Other nonspecific abnormal finding of lung field; Z98.84 Bariatric surgery status
CPT/HCPCS: 36415; 71260; 74177; 80053; 85027; 86300; Q9967

== ENCOUNTER 2021-08-20 08:25 | Outpatient (CLI) | payer OTHER ==
[2021-08-20 12:34] LABS: ESTIMATED AVERAGE GLUCOSE 114 mg/dL (70-100); HEMOGLOBIN A1c% 5.6 % (4.27-6.07)
== END 2021-08-20 08:26 | disposition home or self-care (01) ==
LOC: LAB.N 08:25
PROVIDERS: ATTEND Physician Assistant Medical
DX: E29.1 Testicular hypofunction (principal); R73.9 Hyperglycemia, unspecified
CPT/HCPCS: 36415; 83036; 84403

== ENCOUNTER 2022-02-03 09:15 | Outpatient (CLI) | payer OTHER ==
[2022-02-03 12:12] LABS: BASOPHILS % (AUTO) 0.7 %; EOSINOPHILS # (AUTO) 0.3 10^3/uL (0.0-0.7); EOSINOPHILS % (AUTO) 4.1 %; HCT - HEMATOCRIT 39.8 % (42.0-52.0); HGB - HEMOGLOBIN 12.7 g/dL (14.0-18.0); LYMPHOCYTES # (AUTO) 1.6 10^3/uL (1.5-3.5); LYMPHOCYTES % (AUTO) 26.2 %; MEAN CORPUSCULAR HEMOGLOBIN 30.4 pg (27.0-31.0); MEAN CORPUSCULAR HGB CONC 31.9 g/dL (32.0-36.0); MEAN CORPUSCULAR VOLUME 95.2 fL (80.0-94.0); MEAN PLATELET VOLUME 10.1 fL (7.4-11.4); MONOCYTES # (AUTO) 0.4 10^3/uL (0.0-1.0); MONOCYTES % (AUTO) 6.4 %; NEUTROPHILS # (AUTO) 3.8 10^3/uL (1.5-6.6); NEUTROPHILS % (AUTO) 62.3 %; PLT - PLATELET COUNT 340 10^3/uL (130-450); RED BLOOD COUNT 4.18 10^6/uL (4.70-6.10); RED CELL DISTRIBUTION WIDTH 12.9 % (12.0-15.0); WHITE BLOOD COUNT 6.1 x10^3/uL (4.8-10.8)
== END 2022-02-03 09:16 | disposition home or self-care (01) ==
LOC: LAB.N 09:15
PROVIDERS: ATTEND Physician Assistant Medical
DX: D50.9 Iron deficiency anemia, unspecified (principal)
CPT/HCPCS: 36415; 85025

== ENCOUNTER 2022-03-17 08:00 | Outpatient (CLI) | payer OTHER ==
[2022-03-17 08:49] LABS: CHOL/HDL RATIO 2.5 (<5.0); CHOLESTEROL 208 mg/dL; HDL CHOLESTEROL 84 mg/dL; LDL CHOLESTEROL,CALCULATED 115 mg/dL; LDL/HDL RATIO 1.4 (<3.6); TRIGLYCERIDES 45 mg/dL; VLDL CHOLESTEROL 9 mg/dL
[2022-03-17 12:38] LABS: ESTIMATED AVERAGE GLUCOSE 117 mg/dL (70-100); HEMOGLOBIN A1c% 5.7 % (4.27-6.07)
== END 2022-03-17 08:01 | disposition home or self-care (01) ==
LOC: LAB 08:00
PROVIDERS: ATTEND Physician Assistant Medical
DX: R73.9 Hyperglycemia, unspecified (principal)
CPT/HCPCS: 36415; 80061; 83036; 83721

== ENCOUNTER 2022-03-18 14:14 | Outpatient (CLI) | payer OTHER ==
--- NOTE | 2022-04-02 12:41 | Mammography Report ---
MALE UNILATERAL LEFT DIGITAL SCREENING MAMMOGRAM 3D/2D: 03/18/2022 CLINICAL: Routine screening. Personal history of right breast cancer. Comparison is made to exams dated: 03/18/2022 mammogram - [facility], [facility], 09/24/2020 mammogram, and 09/15/2016 mammogram - [facility]. No significant masses, calcifications, or other findings are seen in the breast. Trace left gynecomas tia. There has been no significant interval change. IMPRESSION: NEGATIVE There is no mammographic evidence of malignancy. Consider continued screening mammogram. This exam was interpreted at Station ID: [id number]. NOTE: For mammograms, a report in lay terms will be sent to the patient. Approximately 15% of breast malignancies will not be visualized mammographically. In the management of a palpable breast mass, a negative mammogram must not discourage biopsy of a clinically suspicious lesion. Electronically Signed By: Dmitriy Kaplan M.D. slc/:04/01/2022 13:46:56 ACR BI-RADS Category 1: Negative 3341F PARENCHYMAL PATTERN: (F) - The breast(s) demonstrate(s) diffuse fatty replacement. BI-RADS CATEGORY: (1) - 1 RECOMMENDATION: (ANNUAL) - Recommend routine annual screening mammography. [id number] 1 year screening LATERALITY: (B)
== END 2022-03-18 14:15 | disposition home or self-care (01) ==
LOC: DI 14:14
DX: Z13.1 Encounter for screening for diabetes mellitus (principal); Z85.3 Personal history of malignant neoplasm of breast

== ENCOUNTER 2023-03-11 08:27 | Outpatient (CLI) | payer OTHER ==
[2023-03-11 12:51] LABS: ESTIMATED AVERAGE GLUCOSE 111 mg/dL (70-100); HEMOGLOBIN A1c% 5.5 % (4.27-6.07)
[2023-03-11 12:52] LABS: ALBUMIN 3.7 g/dL (3.2-5.5); ALBUMIN/GLOBULIN RATIO 1.6 (1.0-2.2); ALKALINE PHOSPHATASE 64 IU/L (42-121); ALT ALANINE AMINOTRANSFERASE 11 IU/L (10-60); AST ASPARTATE AMINOTRANSFERASE 18 IU/L (10-42); BILIRUBIN,TOTAL 0.4 mg/dL (0.2-1.0); BUN - BLOOD UREA NITROGEN 15 mg/dL (6-20); CALCIUM 9.2 mg/dL (8.5-10.3); CARBON DIOXIDE - CO2 30 mmol/L (21-32); CHLORIDE 107 mmol/L (101-111); CHOL/HDL RATIO 2.3 (<5.0); CHOLESTEROL 187 mg/dL; GFR - MDRD 72 (>89); GLUCOSE 107 mg/dL (74-104); HDL CHOLESTEROL 80 mg/dL; LDL CHOLESTEROL,CALCULATED 94 mg/dL; LDL/HDL RATIO 1.2 (<3.6); POTASSIUM 4.4 mmol/L (3.5-4.5); SODIUM 142 mmol/L (135-145); TRIGLYCERIDES 65 mg/dL (48-352); VLDL CHOLESTEROL 13 mg/dL
== END 2023-03-11 08:28 | disposition home or self-care (01) ==
LOC: LAB.N 08:27
PROVIDERS: ATTEND Physician Assistant Medical
DX: R73.9 Hyperglycemia, unspecified (principal)
CPT/HCPCS: 36415; 80053; 80061; 83036; 83721

== ENCOUNTER 2023-05-21 11:13 | Day surgery (SDC) | payer OTHER ==
[2023-05-21] MEDS: LACTATED RINGERS 1,000 ML IV ONE ×2 (11:25→13:59)
--- NOTE | 2023-05-21 12:24 | ANESTHESIA ---
Pre-Anesthesia VS, & Labs - Diagnosis SCREENING - Procedure COLONOSCOPY Vital Signs: Temp Pulse Resp BP Pulse Ox O2 Flow Rate 36.4 C L 53 L 12 156/80 H 98 05/21/23 11:25 05/21/23 11:25 05/21/23 11:25 05/21/23 11:25 05/21/23 11:25 Height: 5 ft 11 in Weight (kg): 92.4 kg Body Mass Index: 28.4 BMI Classification: Overweight - NPO Last Fluid Intake: 0900 Home Medications and Allergies Ascorbic Acid [Vitamin C] 1,000 mg PO DAILY 02/26/14 Calcium Carbonate/Vitamin D3 [Calcium + Vitamin D Tablet] 2 each PO BID 02/26/14 Ferrous Sulfate [Iron Supplement] 325 mg PO DAILY 02/26/14 Magnesium 400 mg PO DAILY 02/26/14 Mecobalamin [B-12] 1,000 mcg PO DAILY 02/26/14 Multivitamin [Multivitamins] 1 ea PO DAILY 02/26/14 Omeprazole 20 mg PO DAILY 02/26/14 [place]-3/Dha/Epa/Fish Oil [Fish Oil 1,000 mg Softgel] 1 each PO DAILY 10/23/20 Tamoxifen Citrate 1 tab PO DAILY 11/26/20 Allergies/Adverse Reactions: Allergies Allergy/AdvReac Type Severity Reaction Status Date / Time No Known Drug Allergies Allergy Verified 11/05/20 16:05 Anes History & Medical History - Anesthetic History Anesthesia Complications: reports: No previous complications Family history of Anesthesia Complications: Denies - Medical History Cardiovascular: reports: None Pulmonary: reports: None Gastrointestinal: reports: None, GERD Urinary: reports: Benign prostate hypertrophy Musculoskeletal: reports: Other Endocrine/Autoimmune: reports: None Skin: reports: None Smoking Status: Former smoker - Surgical History General: reports: Cholecystectomy, Gastric surgery, Other Orthopedic: reports: Other Results - EKG Results EKG Comparison: Reviewed EKG Exam General: Alert Dental: WNL Mouth Openin Fingerbreadth Neck Mobility: Normal Mallampati classification: II Thyromental Distance: 4-6 cm Plan Anesthesia Type: Total IV Consent for Procedure(s) Verified and Reviewed: Yes Code Status: Attempt Resuscitation ASA classification: 2-Mild systemic disease Is this case an emergency?: No
[2023-05-21] MEDS ORDERED: LIDOCAINE-MPF 2% 5 ML VIAL ONE (12:41)
[2023-05-21] MEDS ORDERED: PROPOFOL 500 MG/50 ML 500 MG/50 ML VIAL ONE (12:41)
[2023-05-21] MEDS ORDERED: PROPOFOL 200 MG/20 ML VIAL IVP ONE (13:41)
[2023-05-21 14:05] VITALS: O2SAT 99
[2023-05-21 14:36] VITALS: BP 122/65
--- NOTE | 2023-05-21 15:32 | ANESTHESIA POST OP EVALUATION ---
Anesthesia Post Eval - Post Anesthesia Eval Vitals: Last Vital Signs Temp 36.6 C 05/21/23 14:30 Pulse 58 L 05/21/23 14:30 Resp 16 05/21/23 14:30 BP 122/65 05/21/23 14:30 Pulse Ox 99 05/21/23 14:30 O2 Flow Rate CV Function Including HR & BP: Stable Pain Control: Satisfactory Nausea & Vomiting: Negative Mental Status: Baseline Respiratory Status: Airway Patent Hydration Status: Satisfactory Anesthesia Complications: None
== END 2023-05-21 11:14 | disposition home or self-care (01) ==
LOC: SDS 11:13
PROVIDERS: ATTEND Surgery
PROC: 0DBN8ZZ Excision of Sigmoid Colon, Via Natural or Artificial Opening Endoscopic (ICD-10-PCS; 2023-05-21)
PROC: 0DBK8ZZ Excision of Ascending Colon, Via Natural or Artificial Opening Endoscopic (ICD-10-PCS; principal; 2023-05-21 12:30)
DX: Z12.11 Encounter for screening for malignant neoplasm of colon (principal); R19.5 Other fecal abnormalities; D12.5 Benign neoplasm of sigmoid colon; D12.2 Benign neoplasm of ascending colon; K57.30 Diverticulosis of large intestine without perforation or abscess without bleeding; Z87.891 Personal history of nicotine dependence
CPT/HCPCS: 45385; J7120

== ENCOUNTER 2023-05-25 07:37 | Outpatient (CLI) | payer OTHER ==
--- NOTE | 2023-05-25 08:08 | CARDIAC PROCEDURE NOTE ---
Stress Test Report Service Date: 05/25/23 Service Time: 08:00 Ordering Provider: Kailee Lopez PA-C Indication for Test: Assess exertional dyspnea. Significant Medical History: Tamir reports a general decline in his state of well being, after stopping testerone replacement therapy about 3 yrs ago due to breast cancer diagnosis, with gradual decline in exercise tolerance and increasing exertional dyspnea thereafter. The latter has progressed in recent months, to the point where he avoids walking up hills when possible. He continues walking his dog daily on flat ground, sometimes having to slow down, but not having to stop, due to dys pnea. Occasionally he has a sensation of an associated mild "knuckle" between his shoulder blades, that can dissipate while he continues walking, or resolves in less than a minute with rest. He does not have associated chest pressure/pain/discomfort nor diaphoresis with exertion and he does not experience dyspnea at rest. He does recall being told of a heart murmur being present in the past, though he does not remember how far back this was originally brought to his attention. Cardiac Risk Factors: Positive for known coronary artery calcification; mother had history of CVA (type unknown) though no known family history of CAD; he has a history of remote cigarette smoking (quit over 50 yrs ago, so minimal attributable risk for CAD); no history of hypertension, hyperlipidemia (fasting lipids in 03/24: TChol 187, LDLc 94, HDLc 80, TG 65), or diabetes. Type of Stress Test: ETT with Echocardiography Procedure: -Exercise Treadmill Test- After signing informed consent, the patient underwent echo imaging at rest and then performed treadmill exercise using a Ronnie protocol. The patient exercised for 7 minutes 1 second and achieved a peak heart rate of 129 (91 percent predicted maximum heart rate for age), and an estimated workload of 8.6 METS. The test was terminated due to fatigue/shortness of breath. Resting heart rate: 50 Peak heart rate: 129 Normal response to exercise. Resting BP: 131/74 Peak BP: 167/55 Note that pattern of BP response to exercise was abnormal: with initial decrease to 116/48 in stage I, 144/55 in stage II, with maximal BP of 167/65 recorded at 4:59 of Recovery. Room air oxygen saturation was 97% at rest, with gradual decline to maddi of 88% at peak exercise. Rhythm during exercise: Sinus rhythm throughout, with increasing frequency of PACs and PVCs with increasing exercise; there was one PVC couplet observed. Symptoms: He denied any experience of anterior or posterior chest discomfort; he described thigh muscle burning and dyspnea, with the latter becoming limiting to his exertion. EKG at rest showed sinus bradycardia at rate 50 bpm with ND prolongation to 227 msec (first-degree AV block), abnormal QRS in V1 and V2 possibly consistent with prior infarct and in the standing position, left anterior fascicular block pattern was present. EKG at peak stress showed no ischemia by EKG criteria. In Recovery heart rate declined towards baseline, with initial BP increase (as above) then decrase, with final HR/BP respectively of 84 and 156/66 at 7:00. Echo imaging, performed at rest and with stress, will be reported separately. Robbie Byrd MD, was present throughout this treadmill stress study and supervised it in its entirety. Summary: 1) Exercise tolerance was actually moderately above average for age as evidenced by SARA of -15%. 2) Abnormal resting EKG, though with interpretable ST/T segments. 3) Adequate level of exercise was achieved on this treadmill stress test. 4) Abnormal BP response to exercise (as detailed above). 5) No ischemic changes by EKG criteria were seen at peak stress. 6) Interpretation of resting echo images reveals normal left ventricular size, wall thickness and systolic function; on screening views the aortic valve is thickened and sclerotic, with mild increase of peak outlow tract velocity (2.2 m/s) just below the threshold (2.5 m/s) for mild stenosis. A TR jet with borderline elevated max velocity of 2.5 m/sec was present (indicating upper limit of normal estimated RV/PA systolic pressure) with IVC of 1.9 cm, for which respiratory variation could not be obtained (likely indicating CVP of 5-10 cm H2O. With exercise there was appropriate hyperdynamic augmentation of all segments, indicating no inducible ischemia. See separate report for more details. Conclusions and Recommendations: 1) Overall the study is likely reassuring with respect to ischemia as a contributor to his exertional symptoms, given his exercise time and SARA achieved, with no EKG or echocardiographic evidence of inducible ischemia. 2) The aortic valve is sclerotic, with indices just below those indicating mild aortic stenosis without regurgitation. He reports having been informed of a heart murmur for at least a few years. Although we attempted to reassess his aortic outflow velocity after obtaining stress views for wall motion analysis, we could not obtain satisfactory data. 3) I am recommending that he be referred for formal Cardiology evaluation at [facility], where they can obtain a full dedicated resting echocardiogram for further clarification and to serve as a baseline for likely periodic surveillance studies in the future. 4) He did experience borderline oxygen desaturation at peak exercise. He tells me that he has a finger oximeter at home and I advised him to take it with him on some walks and check oxygen saturation at times when he is most active. If he is seeing values less than 90% in this context I recommended that he inform his healthcare team, for further assessment.
== END 2023-05-25 07:38 | disposition home or self-care (01) ==
LOC: DI 07:37
PROVIDERS: ATTEND Physician Assistant Medical
DX: R06.09 Other forms of dyspnea (principal); I25.10 Atherosclerotic heart disease of native coronary artery without angina pectoris; Z87.891 Personal history of nicotine dependence; Z82.3 Family history of stroke
CPT/HCPCS: 93350